=== PATIENT | female | born 1965 | race Caucasian/White ===

== ENCOUNTER → 2017-04-12 | Outpatient (CLI) | payer OTHER ==
[~2017-04-12] MED LIST: ASPI-496 PO; SIMV40TA3 PO; TRIA1CAP3 PO
[2017-04-12 10:08] LABS: HEMOGLOBIN 15.1 g/dL (11.7-16.4)
[2017-04-12 10:20] LABS: BLOOD UREA NITROGEN 11 mg/dL (7-18)
[2017-04-12 10:47] LABS: ASPARTATE AMINO TRANSFERASE 37 U/L (15-37); FERRITIN 69.9 ng/mL (8-252); TOTAL IRON BINDING CAPACITY 400 mcg/dL (250-450); TRANSFERRIN 319 mg/dL (200-360)
== END | disposition home or self-care (01) ==
LOC: STAR 08:54
PROVIDERS: ATTEND Thoracic Surgery (Cardiothoracic Vascular Surgery)
DX: Z01.818 Encounter for other preprocedural examination (principal); E55.9 Vitamin D deficiency, unspecified; R79.89 Other specified abnormal findings of blood chemistry
CPT/HCPCS: 36415; 71020; 80053; 80061; 82306; 82607; 82728; 82746; 83540; 83550; 83970; 84134; 84425; 84466; 85025; 93005

== ENCOUNTER 2017-04-18 09:03 | Inpatient (IN) | payer OTHER ==
[~2017-04-18] VITALS: Ht 165.1 cm; Wt 108.0 kg
[~2017-04-18 09:03] MED LIST changes: +BUPIVACAINE/PF 0.5% ONE
[2017-04-18] MEDS ORDERED: LACTATED RINGERS 1,000 ML IV SCH (11:45)
[2017-04-18 11:46] VITALS: BP 136/100
[2017-04-18] MEDS ORDERED: MIDAZOLAM 1 MG/ML, 2ML ONE (11:49)
[2017-04-18] MEDS ORDERED: FENTANYL PF 100 MCG/2ML ONE ×4 (11:49→14:15)
[2017-04-18] MEDS ORDERED: PROPOFOL 10 MG/ML, 20ML ONE (11:50)
[2017-04-18] MEDS ORDERED: WATER-INJECTION,STERILE 10 ML IV ONE (11:51)
[2017-04-18] MEDS ORDERED: CEFAZOLIN 1,000 MG ONE ×2 (11:51)
[2017-04-18] MEDS ORDERED: PHENYLEPHRINE 10 MG/ML ONE (12:01)
[2017-04-18] MEDS ORDERED: SCOPOLAMINE PATCH, 1MG PATCH.TD72 TD ONE (12:30)
[2017-04-18] MEDS ORDERED: ROCURONIUM 10 MG/ML ONE (12:48)
[2017-04-18] MEDS ORDERED: DEXAMETHASONE 4 MG/ML, 1ML ONE ×2 (12:58)
[2017-04-18] MEDS ORDERED: ONDANSETRON 2MG/ML, 2ML ONE (12:58)
[2017-04-18] MEDS ORDERED: ONDANSETRON 2MG/ML, 2ML IVPush PRN ×2 (13:00→14:30)
[2017-04-18] MEDS ORDERED: PROMETHAZINE 25 MG/ML, 1ML IV PRN (13:00)
[2017-04-18] MEDS ORDERED: LABETALOL 5MG/ML, 20ML IV PRN (13:00)
[2017-04-18] MEDS ORDERED: MEPERIDINE/PF 25MG/0.5ML IVPush PRN (13:00)
[2017-04-18] MEDS ORDERED: ACETAMINOPHEN 325 MG TABLET PO PRN (13:00)
[2017-04-18] MEDS ORDERED: OXYcodone 5 MG/5 ML ORAL.SOL UDC PO PRN (13:00)
[2017-04-18] MEDS ORDERED: GLYCOPYRROLATE 0.2MG/1ML, 5ML ONE (13:03)
[2017-04-18] MEDS ORDERED: NEOSTIGMINE 1 MG/ML, 10ML ONE (13:03)
[2017-04-18] MEDS ORDERED: LABETALOL 5MG/ML, 20ML ONE (13:22)
[2017-04-18] MEDS ORDERED: EPINEPHRINE 1 MG/ML, 1ML INFIL ONE (13:28)
[2017-04-18] MEDS ORDERED: BUPIVACAINE/PF 0.5% INFIL ONE (13:28)
[2017-04-18] MEDS: LACTATED RINGERS 1,000 ML IV SCH ×2 (14:02→23:41)
[2017-04-18] MEDS ORDERED: HYDROmorphone 2 MG/ML, 1ML ONE (14:15)
[2017-04-18] MEDS ORDERED: hydrALAzine 20 MG/ML, 1ML ONE (14:15)
[2017-04-18] MEDS: FENTANYL PF 100 MCG/2ML IV PRN ×3 (14:16→14:53)
[2017-04-18] MEDS: hydrALAzine 20 MG/ML, 1ML IV PRN ×2 (14:17→14:44)
[2017-04-18] MEDS: HYDROmorphone 1 MG/ML, 1ML IV PRN ×6 (14:19→15:28)
[2017-04-18] MEDS ORDERED: ENALAPRILAT 1.25 MG/ML, 2ML IV PRN (14:30)
[2017-04-18] MEDS ORDERED: PROMETHAZINE 25 MG/ML, 1ML IM PRN (14:30)
[2017-04-18] MEDS ORDERED: hydrALAzine 20 MG/ML, 1ML IVPush PRN (14:30)
[2017-04-18] MEDS ORDERED: PHENOL THROAT SPRAY BOTTLE MM PRN (14:30)
[2017-04-18] MEDS ORDERED: PROMETHAZINE 12.5 MG SUPP PR PRN (14:30)
[2017-04-18] MEDS ORDERED: LORazepam 2 MG/ML, 1ML IV PRN (14:30)
[2017-04-18] MEDS ORDERED: DIPHENHYDRAMINE 50 MG/ML, 1ML IV PRN (14:30)
[2017-04-18] MEDS ORDERED: LORazepam 2 MG/ML, 1ML ONE (14:43)
[2017-04-18] MEDS ORDERED: HYDROmorphone 1 MG/ML, 1ML ONE (15:18)
[2017-04-18 16:00] VITALS: BP 105/68
[2017-04-18] MEDS: morphine SULFATE 10 MG/ML, 1ML IVPush PRN ×3 (17:27→21:36)
[2017-04-18 20:37] VITALS: BP 115/69
[2017-04-18] MEDS: FAMOTIDINE 20 MG/2 ML IVPush SCH (21:32)
[2017-04-19] MEDS ORDERED: HYDROcodone/APAP 7.5-325MG/15ML UDC PO PRN
[2017-04-19 00:22] VITALS: BP 117/76
[2017-04-19] MEDS: morphine SULFATE 10 MG/ML, 1ML IVPush PRN ×2 (00:44→05:30)
[2017-04-19 05:12] VITALS: BP 127/77
[2017-04-19] MEDS: LACTATED RINGERS 1,000 ML IV SCH ×2 (05:26→11:02)
[2017-04-19 05:27] LABS: HEMOGLOBIN 13.9 g/dL (11.7-16.4); WHITE BLOOD COUNT 9.1 x10^3/uL (3.4-10)
[2017-04-19 05:38] LABS: BLOOD UREA NITROGEN 9 mg/dL (7-18)
[2017-04-19] MEDS: FAMOTIDINE 20 MG/2 ML IVPush SCH (07:17)
[2017-04-19 08:01] VITALS: BP 104/58
== END 2017-04-19 13:00 | disposition home or self-care (01) | DRG 621 ==
LOC: ORIP 11:24 → 4NOR 15:49 → DCLOUNGE 04-19 12:30
PROVIDERS: ADMIT Thoracic Surgery (Cardiothoracic Vascular Surgery); ATTEND Thoracic Surgery (Cardiothoracic Vascular Surgery)
PROC: 0BQT4ZZ Repair Diaphragm, Percutaneous Endoscopic Approach (ICD-10-PCS; 2017-04-18)
PROC: 0DB64Z3 Excision of Stomach, Percutaneous Endoscopic Approach, Vertical (ICD-10-PCS; principal; 2017-04-18 14:00)
DX: E66.01 Morbid (severe) obesity due to excess calories (principal); E78.00 Pure hypercholesterolemia, unspecified; G47.30 Sleep apnea, unspecified; I10 Essential (primary) hypertension; R32 Unspecified urinary incontinence; K44.9 Diaphragmatic hernia without obstruction or gangrene; M19.90 Unspecified osteoarthritis, unspecified site; Z68.39 Body mass index [BMI] 39.0-39.9, adult; Z90.710 Acquired absence of both cervix and uterus; Z98.51 Tubal ligation status; Z88.0 Allergy status to penicillin; Z91.040 Latex allergy status; Z82.61 Family history of arthritis; Z83.3 Family history of diabetes mellitus; Z82.49 Family history of ischemic heart disease and other diseases of the circulatory system; Z82.3 Family history of stroke; Z87.891 Personal history of nicotine dependence
CPT/HCPCS: 36415; 80048; 82040; 85025; 88307; J0171; J0690; J1100; J1170; J2250; J2405; J2704; J2710; J3010; J3490; J0360; J2060; J2270; J2370; J7120; S0028